=== PATIENT | male | born 1985 | race Caucasian/White ===

== ENCOUNTER 2017-09-25 18:49 | Emergency (ER) | payer OTHER ==
[~2017-09-25] VITALS: Ht 182.9 cm; Wt 79.4 kg
[2017-09-25 18:57] VITALS: BP 126/76
[2017-09-25] MEDS ORDERED: MORPHINE SULFATE 10 MG/ML SYRINGE. SQ ONE (19:30)
[2017-09-25] MEDS ORDERED: IV RINGERS SOLUTION,LACTATED 1,000 ML IV ONE (19:30)
[2017-09-25] MEDS ORDERED: TETANUS AND DIPHTHERIA TOX/PF 0.5 ML VIAL. VAX IM ONE (19:30)
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
[2017-09-25 19:58] LABS: BASO # 0.1 x10^3/uL (0.0-0.2); BASO % 1 % (0-3); EOS # 0.1 x10^3/uL (0.0-0.7); EOS % 1 % (0-3); HEMATOCRIT 43.2 % (39.0-53.0); HEMOGLOBIN 14.6 g/dL (13.0-17.5); LYMPH # 1.5 x10^3/uL (1.0-4.8); LYMPH % 16 % (24-48); MEAN CORPUSCULAR HEMOGLOBIN 31 pg (25-35); MEAN CORPUSCULAR HGB CONC 34 g/dL (31-37); MEAN CORPUSCULAR VOLUME 93 fL (79-100); MONO # 0.7 x10^3/uL (0.0-1.1); MONO % 8 % (0-9); NEUT # 7.4 x10^3uL (1.8-7.7); NEUT % 76 % (31-73); PLATELET COUNT 254 x10^3/uL (140-400); RED BLOOD COUNT 4.67 x10^6/uL (4.30-5.70); RED CELL DISTRIBUTION WIDTH 13.3 % (11.5-14.5); WHITE BLOOD COUNT 9.8 x10^3/uL (4.0-11.0)
[2017-09-25 20:29] LABS: ALBUMIN/GLOBULIN RATIO 1.3 (1.0-1.7); CALCIUM 9.2 mg/dL (8.5-10.1); CREATININE 1.1 mg/dL (0.7-1.3); GFR 77.1; POTASSIUM 3.9 mmol/L (3.5-5.1); TOTAL BILIRUBIN 0.7 mg/dL (0.2-1.0)
[2017-09-25] MEDS ORDERED: KETOROLAC 30 MG/ML VIAL. IV ONE (21:00)
[2017-09-25] MEDS ORDERED: HYDR-79 PO (21:50)
[2017-09-25] MEDS ORDERED: DIPHTH,PERTUSS(ACELL),TET TOX 0.5 ML DISP.SYRIN. VAX IM ONE (22:00)
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
== END 2017-09-25 22:18 | disposition home or self-care (01) ==
LOC: ER 18:49
DX: S87.81XA Crushing injury of right lower leg, initial encounter (principal); S80.12XA Contusion of left lower leg, initial encounter; Y93.89 Activity, other specified; V09.9XXA Pedestrian injured in unspecified transport accident, initial encounter; Y99.8 Other external cause status; Y92.89 Other specified places as the place of occurrence of the external cause
CPT/HCPCS: 36415; 73502; 73552; 73562; 73590; 73610; 80053; 82553; 85025; 85610; 85730; 96372; 96374; 99285; J1885; J2270; J7120

== ENCOUNTER 2018-11-03 16:29 | Emergency (ER) | payer OTHER, BC ==
[~2018-11-03 16:29] MED LIST: HYDR-1179 PO
[2018-11-03 16:40] VITALS: BP 138/82
--- NOTE | 2018-11-03 16:54 | PHYS DOC ---
Past History Past Medical History: No Pertinent History Past Surgical History: No Surgical History Alcohol Use: None Drug Use: None Adult General Chief Complaint Chief Complaint: TOE PROBLEM HPI HPI Patient is a 33-year-old male with left small toe injury. He states he was sparring in [facility] 2 days ago and injured his foot. He tried to treat it conservatively at home with ice elevation and donald taping with no success. He states he can't stay put weight on his foot secondary to the intensity of the pain. He states the red and purple color has improved since he did this on [] Review of Systems Review of Systems Constitutional: Denies fever or chills [] Musculoskeletal: Per history of present illness[] All other systems were reviewed and found to be within normal limits, except as documented in this note. Allergies Allergies Allergies Coded Allergies Type Severity Reaction Last Updated Verified No Known Drug Allergies 09/25/17 No Physical Exam Physical Exam Constitutional: Well developed, well nourished, mild distress, non-toxic appearance. [] HENT: Normocephalic, atraumatic, bilateral external ears normal, oropharynx moist, no oral exudates, nose normal. [] Eyes: PERRLA, EOMI, conjunctiva normal, no discharge. [] Neck: Normal range of motion, no tenderness, supple, no stridor. [] Cardiovascular:Heart rate regular rhythm, no murmur [] Lungs & Thorax: Bilateral breath sounds clear to auscultation [] Extremities: Left fifth toe is swollen with ecchymosis no obvious deformity. [] Neurologic: Alert and oriented X 3, normal motor function, normal sensory function, no focal deficits noted. [] Psychologic: Anxious. [] Current Patient Data Vital Signs Vital Signs Date Time Temp Pulse Resp B/P (MAP) Pulse Ox O2 Delivery O2 Flow Rate FiO2 11/03/18 16:40 51 18 100 Room Air EKG EKG [] Radiology/Procedures Radiology/Procedures [] Course & Med Decision Making Course & Med Decision Making Pertinent Labs and Imaging studies reviewed. (See chart for details) [] Dragon Disclaimer Dragon Disclaimer This electronic medical record was generated, in whole or in part, using a voice recognition dictation system. Departure Departure: Impression: Primary Impression: Fracture of fifth toe, right, closed Disposition: 01 HOME, SELF-CARE Condition: STABLE Referrals: PCP,NO (PCP) Patient Instructions: Toe Fracture, Toe Fracture with [facility] Additional Instructions: Wear your ortho shoe until you're pain free. Scripts Hydrocodone Bit/Acetaminophen (NORCO 5-325 TABLET) 1 Each Tablet 1-2 TAB PO Q4-6HRS for PAIN, #12 TAB Prov: MIRIAN COLON DO 11/03/18 Problem Qualifiers Primary Impression: Fracture of fifth toe, right, closed Encounter type: initial encounter Qualified Codes: S92.501A - Displaced unspecified fracture of right lesser toe(s), initial encounter for closed fracture MIRIAN COLON DO Nov 03, 2018 16:54
[2018-11-03] MEDS ORDERED: HYDR-3165 PO (17:46)
--- NOTE | 2018-11-03 18:00 | RAD ---
Exam performed: Left fifth toe x-ray. HISTORY: Injury, pain and swelling. DATE OF SERVICE: 11/03/2018. COMPARISON: None available FINDINGS: Normal alignment is preserved. There is no acute fracture or dislocation. No soft tissue swelling or foreign body seen. IMPRESSION: Negative exam Electronically signed by: Courtney Gray MD (11/03/2018 5:57 PM) [facility]
== END 2018-11-03 17:44 | disposition home or self-care (01) ==
LOC: ER 16:29
DX: S92.502A Displaced unspecified fracture of left lesser toe(s), initial encounter for closed fracture (principal); X58.XXXA Exposure to other specified factors, initial encounter; Y93.89 Activity, other specified; Y92.89 Other specified places as the place of occurrence of the external cause; Y99.8 Other external cause status
CPT/HCPCS: 73660; 99284

== ENCOUNTER 2018-12-26 16:52 | Emergency (ER) | payer BC, OTHER ==
[~2018-12-26 16:52] MED LIST changes: +HYDR-3165 PO
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
--- NOTE | 2018-12-26 17:28 | RAD ---
Three-view left shoulder dated 12/26/2018. No comparison available. CLINICAL INDICATION: Shoulder pain. FINDINGS: 3 views left shoulder show normal bony alignment. No displaced fracture. No acute osseous or articular abnormality. Suture anchor at the anterior glenoid, likely remote related to prior labral repair. No periostitis or bone destruction. IMPRESSION: No acute radiographic abnormality. Electronically signed by: Gurvinder De La Cruz MD (12/26/2018 5:25 PM) [facility]
[2018-12-26] MEDS ORDERED: KETOROLAC 60 MG/2 ML VIAL. IM ONE (17:45)
[2018-12-26] MEDS ORDERED: DEXAMETHASONE SOD PHOS 10 MG/ML VIAL IM ONE (17:45)
--- NOTE | 2018-12-26 17:46 | RAD ---
Indication: Neck pain TECHNIQUE: 3 views of the cervical spine COMPARISON: None FINDINGS: There is loss of normal cervical lordosis. This could be due to muscle spasm or positioning. Atlantoaxial joint or is preserved. No compression deformity. Facet joints are in normal anatomic alignment. Prevertebral soft tissues within normal limits. No significant degenerative disc disease. Clear lung apices. IMPRESSION: No acute radiographic findings. Electronically signed by: Sage Herron DO (12/26/2018 5:44 PM) [facility]
[2018-12-26] MEDS ORDERED: HYDR-3165 PO (17:55)
[2018-12-26] MEDS ORDERED: INDO75CA3 PO (17:55)
[2018-12-26] MEDS ORDERED: METH4TAB2 PO (17:55)
[2018-12-26 18:25] VITALS: BP 124/65
== END 2018-12-26 18:28 | disposition home or self-care (01) ==
LOC: ER 16:52
DX: M25.512 Pain in left shoulder (principal); M54.12 Radiculopathy, cervical region
CPT/HCPCS: 72040; 73030; 96372; 99284; J1100; J1885